=== PATIENT | female | born 1995 | race American Indian/Alaskan Native ===

== ENCOUNTER 2017-06-05 17:07 | Emergency (ER) | payer OTHER ==
[~2017-06-05] VITALS: Ht 167.6 cm; Wt 115.0 kg
[2017-06-05] MEDS ORDERED: HYDROcodone/APAP 5/325 TABLET PO ONE (17:30)
[2017-06-05] MEDS ORDERED: HYDROcodone/APAP 5/325 TABLET ONE (17:39)
[2017-06-05 18:32] VITALS: BP 123/71
== END 2017-06-05 18:48 | disposition home or self-care (01) ==
LOC: ED 18:42
DX: M94.0 Chondrocostal junction syndrome [Tietze] (principal)
CPT/HCPCS: 36415; 71020; 84703; 93005; 99285

== ENCOUNTER 2019-11-04 15:23 | Emergency (ER) | payer OTHER ==
[~2019-11-04] VITALS: Ht 167.6 cm; Wt 121.0 kg
[2019-11-04 15:37] VITALS: BP 144/99
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
--- NOTE | 2019-11-04 16:10 | NUR ---
PT TO RADIOLOGY.
[2019-11-04] MEDS ORDERED: HYDROcodone/APAP 5/325 TABLET ONE (16:27)
--- NOTE | 2019-11-04 16:28 | NUR ---
PT MEDICATED PER ORDERS.
[2019-11-04] MEDS ORDERED: HYDROcodone/APAP 5/325 TABLET PO ONE (16:30)
--- NOTE | 2019-11-04 18:08 | NUR ---
Patient/Caregiver given discharge instructions and they have confirmed that they understand the instructions. Patient ambulatory with steady gait.
== END 2019-11-04 18:10 | disposition home or self-care (01) ==
LOC: ED 17:11
DX: S43.51XA Sprain of right acromioclavicular joint, initial encounter (principal); S16.1XXA Strain of muscle, fascia and tendon at neck level, initial encounter; S39.012A Strain of muscle, fascia and tendon of lower back, initial encounter; G89.11 Acute pain due to trauma; Z87.42 Personal history of other diseases of the female genital tract; V43.53XA Car driver injured in collision with pick-up truck in traffic accident, initial encounter; Y93.89 Activity, other specified; Y92.488 Other paved roadways as the place of occurrence of the external cause; Y99.8 Other external cause status
CPT/HCPCS: 72072; 72110; 72125; 99284

== ENCOUNTER 2020-05-24 19:39 | Emergency (ER) | payer OTHER ==
[~2020-05-24] VITALS: Ht 167.6 cm; Wt 113.5 kg
[2020-05-24 19:51] VITALS: BP 111/81
[2020-05-24] MEDS ORDERED: SODIUM CHLORIDE FLUSH 10ML SYR IVF ONE (20:00)
[2020-05-24] MEDS ORDERED: ONDANSETRON 2MG/ML, 2ML IVPush ONE (20:00)
[2020-05-24] MEDS ORDERED: MORPHINE SULFATE 4 MG/ML, 1ML IVPush PRN (20:00)
[2020-05-24] MEDS ORDERED: MORPHINE SULFATE 4 MG/ML, 1ML ONE (20:06)
--- NOTE | 2020-05-24 20:25 | NUR ---
PT CAME IN CO OR RLQ ABD PAIN. PT WAS AT [facility] ER LAST NIGHT AND DIAGNOSED WITH AN OVARIAN CYST. PT CAME IN TONIGHT BECAUSE SHE WAS IN WORSE PAIN TODAY THAN YESTERDAY. PT IS ACCOMPANIED BY MOTHER. MEDICATED PER DEC. LABS SENT. PT REPORTS PAIN IMPROVEMENT
[2020-05-24 20:54] LABS: ALBUMIN 3.2 g/dL (3.4-5.0); ANION GAP 6 mmol/L (5-15); CALCIUM 8.4 mg/dL (8.5-10.1); CHLORIDE 111 mmol/L (98-107); CREATININE 0.76 mg/dL (0.55-1.02)
[2020-05-24 21:28] LABS: MEAN CORPUSCULAR HEMOGLOBIN 16.8 pg (27.0-34.8); MEAN CORPUSCULAR VOLUME 57.5 fL (80-100); MEAN PLATELET VOLUME 7.4 fL (7.4-10.4); PLATELET COUNT 485 x10^3/uL (130-400); RED BLOOD COUNT 5.37 x10^6/uL (3.82-5.3)
[2020-05-24 21:29] LABS: BASOPHILS % (AUTO) 0 % (0-1); EOSINOPHILS # (AUTO) 0.05 x10^3/uL (0-0.4); EOSINOPHILS % (AUTO) 1 % (1-7); LYMPHOCYTES # (AUTO) 2.54 x10^3/uL (1-3.4); LYMPHOCYTES % (AUTO) 29 % (22-44); MD SCAN; MONOCYTES # (AUTO) 0.63 x10^3/uL (0.2-0.8); MONOCYTES % (AUTO) 7 % (2-9); NEUTROPHILS # (AUTO) 5.42 x10^3/uL (1.8-6.8); NEUTROPHILS % (AUTO) 63 % (42-75)
[2020-05-24 21:31] LABS: MEAN CORPUSCULAR HGB CONC 28.6 g/dL (32.4-35.8)
== END 2020-05-24 21:50 | disposition home or self-care (01) ==
LOC: ED 21:45
DX: D27.0 Benign neoplasm of right ovary (principal); R10.31 Right lower quadrant pain
CPT/HCPCS: 36415; 80048; 82040; 84703; 85025; 96374; 96375; 99284; J2270; J2405; 96376

== ENCOUNTER 2020-06-03 22:06 | Emergency (ER) | payer OTHER ==
[~2020-06-03] VITALS: Ht 165.1 cm; Wt 110.5 kg
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
[2020-06-03] MEDS ORDERED: MORPHINE SULFATE 4 MG/ML, 1ML ONE (22:45)
[2020-06-03] MEDS ORDERED: ONDANSETRON 2MG/ML, 2ML ONE (22:45)
[2020-06-03] MEDS ORDERED: MORPHINE SULFATE 4 MG/ML, 1ML IVPush PRN (23:00)
[2020-06-03] MEDS ORDERED: ONDANSETRON 2MG/ML, 2ML IVPush ONE (23:00)
[2020-06-03] MEDS ORDERED: SODIUM CHLORIDE 0.9% 1,000ML IVBOLUS ONE (23:00)
[2020-06-03 23:03] LABS: MICROSCOPIC INDICATED
--- NOTE | 2020-06-03 23:20 | NUR ---
PIV STARTED, PT MEDICATED PER MAR
[2020-06-03 23:24] LABS: ALANINE AMINOTRANSFERASE 12 U/L (12-78); ALBUMIN 3.2 g/dL (3.4-5.0); ANION GAP 7 mmol/L (5-15); CALCIUM 8.1 mg/dL (8.5-10.1); CHLORIDE 108 mmol/L (98-107); CREATININE 0.75 mg/dL (0.55-1.02)
[2020-06-03 23:29] LABS: ALKALINE PHOSPHATASE 98 U/L (45-117); BILIRUBIN,TOTAL 0.4 mg/dL (0.2-1.0); TOTAL PROTEIN 8.1 g/dL (6.4-8.2)
[2020-06-03 23:46] LABS: MEAN CORPUSCULAR HEMOGLOBIN 16.9 pg (27.0-34.8); MEAN CORPUSCULAR VOLUME 57.1 fL (80-100); MEAN PLATELET VOLUME 7.2 fL (7.4-10.4); PLATELET COUNT 432 x10^3/uL (130-400); RED BLOOD COUNT 5.56 x10^6/uL (3.82-5.3)
[2020-06-03 23:48] LABS: MD YES
[2020-06-03 23:52] LABS: ANISOCYTOSIS 1+; BAND#(MANUAL) 0.23 x10^3/uL; BANDS%(MANUAL) 2 % (0-7); EOS#(MANUAL) 0.34 x10^3/uL (0.0-0.4); EOS% (MANUAL) 3 % (1-7); LYMPH#(MANUAL) 1.71 x10^3/uL (1-3.4); LYMPHS% (MANUAL) 15 % (22-44); MONOS#(MANUAL) 0.23 x10^3/uL (0.3-2.7); MONOS% (MANUAL) 2 % (2-9); NRBC % (MANUAL) 1 % (0-1); SEG#(MANUAL) 8.89 x10^3/uL (1.8-6.8); SEGS% (MANUAL) 78 % (42-75)
[2020-06-03 23:53] LABS: MICROCYTOSIS 2+
[2020-06-03 23:54] LABS: <PLATELET ESTIMATE> ADEQUATE; HYPOCHROMIA 2+; LARGE PLATELETS 1+; OVALOCYTES 1+; POLYCHROMASIA 1+; TARGET CELLS 1+
[2020-06-04 00:02] LABS: MEAN CORPUSCULAR HGB CONC 29.6 g/dL (32.4-35.8)
[2020-06-04] MEDS ORDERED: HYDROmorphone 2 MG/ML, 1ML ONE (00:13)
[2020-06-04] MEDS ORDERED: OMNIPAQUE 350 MG/ML, 100ML BOTTLE ONE (00:14)
[2020-06-04] MEDS: HYDROmorphone 2 MG/ML, 1ML IVPush PRN ×2 (00:15→00:57)
--- NOTE | 2020-06-04 00:15 | NUR ---
PT MEDICATED PER DR. BREWSTER FOR PERSISTENT PAIN.
[2020-06-04] MEDS ORDERED: ACETAMINOPHEN 325 MG TABLET ONE (00:19)
[2020-06-04] MEDS ORDERED: ACETAMINOPHEN 500 MG TABLET PO ONE (00:30)
[2020-06-04] MEDS ORDERED: HYDROmorphone 1 MG/ML, 1ML INJ ONE (00:54)
--- NOTE | 2020-06-04 00:54 | NUR ---
PT STILL MOANING IN PAIN STS 07/31 AT THIS TIME.
--- NOTE | 2020-06-04 00:58 | NUR ---
PT MEDICATED AGAIN FOR PAIN
--- NOTE | 2020-06-04 01:51 | NUR ---
REPORT RECIEVED FROM ROBINSON TEJEDA.
--- NOTE | 2020-06-04 02:05 | NUR ---
PT RESTING ON GURNEY, REPORTS SLIGHT DECREASE IN PAIN. PT UPDATED ON POC, MONITORING IN PLACE, IVF INFUSING, CALL LIGHT WITHIN REACH, ALL SAFETY MEASURES IN PLACE. FAMILY AT BS FOR SUPPORT.
--- NOTE | 2020-06-04 02:26 | NUR ---
TP RN: [facility] states that pt has a PPO with [facility] and that she does not need to be transfered.
[2020-06-04] MEDS ORDERED: CEFTRIAXONE PMX 1GM/50ML 50 ML IV ONE (02:30)
[2020-06-04] MEDS ORDERED: CEFTRIAXONE PMX 1GM/50ML 50 ML ONE (02:38)
[2020-06-04] MEDS ORDERED: SODIUM CHLORIDE 0.9% 1,000 ML IV ONE (03:02)
[2020-06-04] MEDS ORDERED: SODIUM CHLORIDE 0.9% 1,000 ML IV SCH (03:10)
[2020-06-04] MEDS ORDERED: HYDROcodone/APAP 5/325 TABLET PO PRN (03:30)
[2020-06-04] MEDS ORDERED: MORPHINE SULFATE 4 MG/ML, 1ML IVPush PRN (03:30)
[2020-06-04] MEDS ORDERED: morphine SULFATE 10 MG/ML, 1ML IVPush PRN (03:30)
[2020-06-04] MEDS ORDERED: ONDANSETRON 2MG/ML, 2ML IVPush PRN (03:30)
[2020-06-04] MEDS ORDERED: ONDANSETRON ODT 4 MG PO PRN (03:30)
[2020-06-04] MEDS ORDERED: ACETAMINOPHEN 325 MG TABLET PO PRN (03:30)
[2020-06-04 03:42] VITALS: BP 98/55
[2020-06-04] MEDS ORDERED: SENNA/DOCUSATE TABLET PO SCH (09:00)
[2020-06-05] MEDS ORDERED: CEFTRIAXONE PMX 1GM/50ML 50 ML IV SCH (03:30)
== END 2020-06-04 03:45 | disposition home or self-care (01) ==
LOC: ED 23:07
DX: N30.00 Acute cystitis without hematuria (principal); D72.829 Elevated white blood cell count, unspecified; R10.31 Right lower quadrant pain; R10.11 Right upper quadrant pain; R50.9 Fever, unspecified
CPT/HCPCS: 36415; 74177; 76700; 80053; 81001; 83605; 83690; 84145; 84703; 85025; 87040; 87086; 96361; 96365; 96375; 96376; 99285; J0696; J1170; J2270; J2405; J7030; Q9967

== ENCOUNTER 2020-06-04 22:35 | Emergency (ER) | payer OTHER ==
[~2020-06-04] VITALS: Ht 170.2 cm; Wt 110.0 kg
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
--- NOTE | 2020-06-04 23:02 | NUR ---
dr soriano at bs at this time for pt history and assessment.
[2020-06-04] MEDS ORDERED: ONDANSETRON 2MG/ML, 2ML ONE (23:15)
[2020-06-04] MEDS ORDERED: MORPHINE SULFATE 4 MG/ML, 1ML ONE ×2 (23:15→23:46)
[2020-06-04] MEDS: MORPHINE SULFATE 4 MG/ML, 1ML IVPush PRN ×2 (23:21→23:49)
[2020-06-04] MEDS ORDERED: SODIUM CHLORIDE 0.9% 1,000ML IVBOLUS ONE (23:30)
[2020-06-04] MEDS ORDERED: ONDANSETRON 2MG/ML, 2ML IVPush ONE (23:30)
--- NOTE | 2020-06-04 23:55 | NUR ---
PT MEDICATED FOR PAIN PER MAR. 2 OF 2 DOSES GIVEN. PT VERBALIZES UNDERSTANDING OF NEED TO VOID.
--- NOTE | 2020-06-05 00:12 | NUR ---
LAB AT BS FOR PT BLOOD DRAW. PT ATTEMPTING TO VOID AT THIS TIME FOR UA.
[2020-06-05 00:34] LABS: ALANINE AMINOTRANSFERASE 12 U/L (12-78); ALBUMIN 2.5 g/dL (3.4-5.0); ANION GAP 7 mmol/L (5-15); CALCIUM 7.4 mg/dL (8.5-10.1); CHLORIDE 111 mmol/L (98-107); CREATININE 0.66 mg/dL (0.55-1.02)
[2020-06-05 00:39] LABS: ALKALINE PHOSPHATASE 69 U/L (45-117); BILIRUBIN,TOTAL 0.3 mg/dL (0.2-1.0); TOTAL PROTEIN 6.6 g/dL (6.4-8.2)
[2020-06-05 00:39] LABS: MICROSCOPIC AUTO
[2020-06-05 00:53] LABS: MEAN CORPUSCULAR HEMOGLOBIN 17.1 pg (27.0-34.8); MEAN CORPUSCULAR VOLUME 57.4 fL (80-100); RED BLOOD COUNT 4.61 x10^6/uL (3.82-5.3); RED CELL DISTRIBUTION WIDTH 20.2 % (9.6-15.2)
[2020-06-05 00:56] LABS: MD YES
--- NOTE | 2020-06-05 01:01 | NUR ---
REPORT OF PT TO ROBINSON TEJEDA. ALL QUESTIONS ANSWERED.
[2020-06-05 01:43] LABS: ANISOCYTOSIS 1+; EOS#(MANUAL) 0.17 x10^3/uL (0.0-0.4); EOS% (MANUAL) 2 % (1-7); HYPOCHROMIA 2+; LYMPH#(MANUAL) 2.58 x10^3/uL (1-3.4); LYMPHS% (MANUAL) 30 % (22-44); MICROCYTOSIS 2+; MONOS#(MANUAL) 0.09 x10^3/uL (0.3-2.7); MONOS% (MANUAL) 1 % (2-9); OVALOCYTES 1+; POLYCHROMASIA 1+; SEG#(MANUAL) 5.76 x10^3/uL (1.8-6.8); SEGS% (MANUAL) 67 % (42-75)
[2020-06-05 01:44] LABS: <PLATELET ESTIMATE> ADEQUATE; LARGE PLATELETS 1+; TARGET CELLS 1+
[2020-06-05 01:45] LABS: MEAN CORPUSCULAR HGB CONC 29.7 g/dL (32.4-35.8); MEAN PLATELET VOLUME 7.1 fL (7.4-10.4); PLATELET COUNT 380 x10^3/uL (130-400)
[2020-06-05 01:46] VITALS: BP 119/67
--- NOTE | 2020-06-05 01:49 | NUR ---
PT TO CT
[2020-06-05] MEDS ORDERED: OMNIPAQUE 350 MG/ML, 75ML BOTTLE ONE (01:53)
[2020-06-05] MEDS ORDERED: AZITHROMYCIN 500 MG TABLET PO ONE (02:30)
[2020-06-05] MEDS ORDERED: AZITHROMYCIN 500 MG TABLET ONE (02:49)
== END 2020-06-05 03:01 | disposition home or self-care (01) ==
LOC: ED 23:13
DX: N39.0 Urinary tract infection, site not specified (principal); N10 Acute pyelonephritis; J18.9 Pneumonia, unspecified organism; R11.0 Nausea; R10.9 Unspecified abdominal pain; R06.02 Shortness of breath; R05 Cough
CPT/HCPCS: 36415; 71045; 71275; 80053; 81001; 83605; 83690; 84703; 85025; 87086; 96361; 96374; 96375; 99285; J2270; J2405; J7030; Q9967

== ENCOUNTER 2021-02-11 14:48 | Emergency (ER) | payer OTHER ==
[~2021-02-11] VITALS: Ht 167.6 cm; Wt 114.1 kg
--- NOTE | 2021-02-11 15:00 | NUR ---
PT WALKED BACK FROM TRIAGE WITH CHIEF COMPLAINT OF SORE THROAT FOR TWO WEEKS. PT REPORTS GETTING COVID VAC WEEKS AGO. ER MELO ANGULO AT BEDSIDE FOR EVAL.
--- NOTE | 2021-02-11 15:12 | NUR ---
REPORT RECIEVED FROM SAROJ BOWERS
[2021-02-11] MEDS ORDERED: DEXAMETHASONE 4 MG/ML, 1ML PO ONE (15:30)
[2021-02-11] MEDS ORDERED: DEXAMETHASONE 4 MG/ML, 1ML ONE (15:50)
--- NOTE | 2021-02-11 16:01 | NUR ---
DECADRON ADMINISTERED PO PER EMAR. PT TOLERATED WELL. NADN
--- NOTE | 2021-02-11 16:12 | NUR ---
preceptor RN note: pt concerned that her left cheek hurts, states it has been painful since this am. requesting repeat exam by JENNIFER. JENNIFER Mancini at bedside for repeat exam.
[2021-02-11 16:13] VITALS: BP 131/69
--- NOTE | 2021-02-11 16:17 | NUR ---
Patient given discharge instructions and they have confirmed that they understand the instructions. Patient stable and ambulatory with steady gait from ED to private vehicle.
== END 2021-02-11 16:17 | disposition home or self-care (01) ==
LOC: ED 15:19
DX: J02.8 Acute pharyngitis due to other specified organisms (principal); B97.89 Other viral agents as the cause of diseases classified elsewhere
CPT/HCPCS: 87081; 87880; 99283; J1100

== ENCOUNTER 2021-04-30 09:07 | Emergency (ER) | payer OTHER ==
[~2021-04-30] VITALS: Ht 167.6 cm; Wt 115.1 kg
[2021-04-30] MEDS ORDERED: DIAZEPAM 5 MG TABLET ONE ×2 (09:41→14:21)
[2021-04-30] MEDS ORDERED: KETOROLAC 30 MG/1 ML ONE (09:41)
[2021-04-30] MEDS ORDERED: HYDROcodone/APAP 5/325 TABLET ONE (09:42)
--- NOTE | 2021-04-30 09:46 | NUR ---
PT MEDICATED FOR 10/10 BACK AND R SHOULDER PAIN. CALL LIGHT WITHIN REACH.
[2021-04-30] MEDS ORDERED: KETOROLAC 30 MG/1 ML IM ONE (10:00)
[2021-04-30] MEDS ORDERED: DIAZEPAM 5 MG TABLET PO ONE ×2 (10:00→14:30)
[2021-04-30] MEDS ORDERED: HYDROcodone/APAP 5/325 TABLET PO ONE (10:00)
--- NOTE | 2021-04-30 10:30 | NUR ---
BREAK RN. PT'S FRIEND OUT TO NURSES/DOCTOR STATION MULTIPLE TIMES REQUESTING MORE PAIN MEDICATION FOR PT. EXPLAINED TO PT'S FRIEND NO OTHER PAIN MEDICATION CURRENTLY ORDERED FOR PT, AND WILL LET ER PA-C KNOW. PT'S FRIEND REMAINS AGGITATED. PT AWARE, NO OTHER PAIN MEDICATION ORDERED, WILL LET ER PA-C KNOW AT THIS TIME PT REMAINS IN PAIN.
[2021-04-30] MEDS ORDERED: HYDROmorphone 1 MG/ML, 1ML INJ ONE (10:54)
--- NOTE | 2021-04-30 10:58 | NUR ---
PT'S FRIEND INTO [facility] FREQUENTLY REQUESTING MORE PAIN MEDICATION. PT AND FRIEND INFORMED OF POC, DURATION/TIME FOR MEDICATION TO WORK FREQUENTLY. ERP NOTIFIED. ADDITIONAL MEDICATION ORDERED. WHILE IN ROOM, PT STARTED YELLING "WHAT'S YOUR GUYS PROBLEM? IF SOMEONE IS IN PAIN, THEY ARE IN PAIN. SEEMS LIKE YOU DON'T CARE". PT INFORMED THIS WAS NOT TRUE AND EVERYONE'S PAIN IS DIFFERENT AND THAT A DIFFERENT MEDICATION WHICH IS STRONGER WOULD BE GIVEN. ERP AND CREW TRAINER NOTIFIED.
[2021-04-30] MEDS ORDERED: ONDANSETRON ODT 4 MG PO ONE (11:00)
[2021-04-30] MEDS ORDERED: HYDROmorphone 2 MG/ML, 1ML IM ONE (11:00)
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
--- NOTE | 2021-04-30 12:13 | NUR ---
CT TO ROOM TO TAKE PT. PT ASKING FOR TEST. ERP NOTIFIED, SERUM PG TEST ORDERED.
--- NOTE | 2021-04-30 13:06 | NUR ---
PT TO CT.
--- NOTE | 2021-04-30 14:08 | NUR ---
CT RESULTS BACK, PT FOR RECHECK.
--- NOTE | 2021-04-30 14:36 | NUR ---
TASK RN: PT MEDICATED PER EMAR. URINE SAMPLE COLLECTED. PT CONNECTED TO MONITORS. NADN/VSS. CALL LIGHT WITHIN REACH. PT STATES NO NEEEDS AT THIS TIME.
[2021-04-30] MEDS ORDERED: ONDANSETRON ODT 4 MG ONE (14:37)
--- NOTE | 2021-04-30 14:47 | NUR ---
TASK RN: PT RESTING CALMLY ON CONCHA ON HER PHONE. NADN. PT STATES NO NEEDS AT THIS TIME
[2021-04-30 14:59] LABS: MICROSCOPIC INDICATED
[2021-04-30 15:15] VITALS: BP 102/62
--- NOTE | 2021-04-30 15:20 | NUR ---
UA RESULTS BACK, PT FOR RECHECK.
== END 2021-04-30 15:39 | disposition home or self-care (01) ==
LOC: ED 09:49
DX: S39.012A Strain of muscle, fascia and tendon of lower back, initial encounter (principal); S29.012A Strain of muscle and tendon of back wall of thorax, initial encounter; N30.00 Acute cystitis without hematuria; X58.XXXA Exposure to other specified factors, initial encounter; Y93.89 Activity, other specified; Y92.89 Other specified places as the place of occurrence of the external cause; Y99.8 Other external cause status
CPT/HCPCS: 36415; 72128; 72131; 81001; 84703; 87086; 96372; 99285; J1170; J1885; Q0162